=== PATIENT | female | born 1970 | race Caucasian/White ===

== ENCOUNTER 2018-04-11 13:06 | Emergency (ER) | payer MEDICARE, OTHER ==
[~2018-04-11] VITALS: Ht 167.6 cm; Wt 53.1 kg
[2018-04-11] MEDS ORDERED: NITROGLYCERIN SUBLINGUAL 0.4 MG BOTTLE OF 25. SL ONE (13:20)
[2018-04-11] MEDS ORDERED: ASPIRIN 81 MG TAB.CHEW ONE ×2 (13:20→13:25)
[2018-04-11] MEDS ORDERED: ASPIRIN ENTERIC COATED 81 MG TABLET.DR. PO ONE (13:24)
[2018-04-11] MEDS ORDERED: NITROGLYCERIN SUBLINGUAL 0.4 MG BOTTLE OF 25. SL PRN (13:30)
[2018-04-11] MEDS ORDERED: ASPIRIN 81 MG TAB.CHEW PO ONE (13:30)
[2018-04-11] MEDS ORDERED: KETOROLAC 30 MG/ML VIAL. ONE (13:53)
[2018-04-11 13:55] LABS: BASO # 0.1 x10^3/uL (0.0-0.2); BASO % 1 % (0-3); EOS # 0.2 x10^3/uL (0.0-0.7); EOS % 3 % (0-3); HEMATOCRIT 34.3 % (36.0-47.0); HEMOGLOBIN 11.6 g/dL (12.0-15.5); LYMPH # 3.5 x10^3/uL (1.0-4.8); LYMPH % 45 % (24-48); MEAN CORPUSCULAR HEMOGLOBIN 32 pg (25-35); MEAN CORPUSCULAR HGB CONC 34 g/dL (31-37); MEAN CORPUSCULAR VOLUME 94 fL (79-100); MONO # 0.5 x10^3/uL (0.0-1.1); MONO % 7 % (0-9); NEUT # 3.6 x10^3uL (1.8-7.7); NEUT % 45 % (31-73); PLATELET COUNT 272 x10^3/uL (140-400); RED BLOOD COUNT 3.63 x10^6/uL (3.50-5.40); RED CELL DISTRIBUTION WIDTH 13.3 % (11.5-14.5); WHITE BLOOD COUNT 7.9 x10^3/uL (4.0-11.0)
[2018-04-11] MEDS ORDERED: KETOROLAC 30 MG/ML VIAL. IV ONE (14:00)
[2018-04-11 14:14] LABS: ALBUMIN 3.4 g/dL (3.4-5.0); ALBUMIN/GLOBULIN RATIO 1.2 (1.0-1.7); CALCIUM 8.5 mg/dL (8.5-10.1); CREATININE 0.7 mg/dL (0.6-1.0); GFR 88.9; MAGNESIUM 2.4 mg/dL (1.8-2.4); POTASSIUM 3.9 mmol/L (3.5-5.1); TOTAL BILIRUBIN 0.1 mg/dL (0.2-1.0); TOTAL PROTEIN 6.2 g/dL (6.4-8.2)
--- NOTE | 2018-04-11 14:34 | RAD ---
Single view of the chest. 04/11/2018 1:10 PM Indication: chest pain, burning feel to left side and in arm Comparison: None available Findings: There is a left subclavian Port-A-Cath with tip at the cavoatrial junction. There is no focal consolidation. There is no pleural effusion or pneumothorax. Heart size is normal. No acute osseous abnormalities are seen. Impression: No evidence of acute cardiopulmonary process. Electronically signed by: Basilio Keene MD (04/11/2018 2:30 PM) [facility]
[2018-04-11] MEDS ORDERED: ALPR0.25 PO (14:48)
--- NOTE | 2018-04-11 14:49 | PHYS DOC ---
Past History Past Medical History: Other Additional Past Medical Histor: Hereditory angioedema Smoking: Non-smoker Alcohol Use: None Drug Use: None Adult General Chief Complaint Chief Complaint: CHEST PAIN HPI HPI Patient is a 47 year old female who presents with complaining of chest pain. Patient complaining of intermittent episodes of low substernal and epigastric as a electrical shock pain that started about 15 minutes prior to arrival to ER while she was driving. Patient states pain radiated to upper chest and neck and associated with shortness of breath, dizziness, palpitation and nausea and last about 2 seconds and repeated every couple minutes. She had rated her pain 7 out of 10. Patient denies fever, cough, vomiting, urinary problems, history of chest pain. Patient does not have any cardiac risk factors except for family history of coronary artery disease. Patient states she is under lots of stress recently. Review of Systems Review of Systems Constitutional: Denies fever or chills [] Eyes: Denies change in visual acuity, redness, or eye pain [] HENT: Denies nasal congestion or sore throat [] Respiratory: Denies cough, reports shortness of breath [] Cardiovascular: No additional information not addressed in HPI [] GI: Denies abdominal pain, vomiting, bloody stools or diarrhea , reports nausea[ ] : Denies dysuria or hematuria [] Musculoskeletal: Denies back pain or joint pain [] Integument: Denies rash or skin lesions [] Neurologic: Denies headache, focal weakness or sensory changes [] Endocrine: Denies polyuria or polydipsia [] All other systems were reviewed and found to be within normal limits, except as documented in this note. Current Medications Current Medications Current Medications Medications (Trade) Dose Ordered Sig/Anya Start Time Stop Time Status Last Admin Dose Admin Aspirin (Aspirin Enteric Coated) 81 mg STK-MED ONCE 04/11/18 13:24 04/11/18 13:25 DC Aspirin (Children'S Aspirin) 324 mg 1X ONCE 04/11/18 13:30 04/11/18 13:31 UNV 04/11/18 13:30 324 MG Ketorolac Tromethamine (Toradol 30mg Vial) 30 mg 1X ONCE 04/11/18 14:00 04/11/18 14:01 UNV 04/11/18 13:57 30 MG Nitroglycerin (Nitrostat) 0.4 mg PRN Q5MIN PRN 04/11/18 13:30 04/12/18 13:29 UNV 04/11/18 13:31 0.4 MG Physical Exam Physical Exam Constitutional: Well developed, well nourished, mild distress, non-toxic appearance. [] HENT: Normocephalic, atraumatic. Eyes: PERRLA, EOMI, conjunctiva normal, no discharge. [] Neck: Normal range of motion, no tenderness, supple, no stridor. [] Cardiovascular: Tachycardia, no murmur [] Lungs & Thorax: Bilateral breath sounds clear to auscultation [] Abdomen: Bowel sounds normal, soft, no tenderness, no masses, no pulsatile masses. [] Skin: Warm, dry, no erythema, no rash. [] Back: No tenderness, no CVA tenderness. [] Extremities: No tenderness, no cyanosis, no clubbing, ROM intact, no edema. [] Neurologic: Alert and oriented X 3, normal motor function, normal sensory function, no focal deficits noted. [] Psychologic: Affect anxious, judgement normal, mood normal. [] Current Patient Data Vital Signs Vital Signs Date Time Temp Pulse Resp B/P (MAP) Pulse Ox O2 Delivery O2 Flow Rate FiO2 04/11/18 13:31 105 122/77 Lab Results Laboratory Tests Test 04/11/18 13:40 White Blood Count 7.9 x10^3/uL (4.0-11.0) Red Blood Count 3.63 x10^6/uL (3.50-5.40) Hemoglobin 11.6 g/dL (12.0-15.5) L Hematocrit 34.3 % (36.0-47.0) L Mean Corpuscular Volume 94 fL (79-100) Mean Corpuscular Hemoglobin 32 pg (25-35) Mean Corpuscular Hemoglobin Concent 34 g/dL (31-37) Red Cell Distribution Width 13.3 % (11.5-14.5) Platelet Count 272 x10^3/uL (140-400) Neutrophils (%) (Auto) 45 % (31-73) Lymphocytes (%) (Auto) 45 % (24-48) Monocytes (%) (Auto) 7 % (0-9) Eosinophils (%) (Auto) 3 % (0-3) Basophils (%) (Auto) 1 % (0-3) Neutrophils # (Auto) 3.6 x10^3uL (1.8-7.7) Lymphocytes # (Auto) 3.5 x10^3/uL (1.0-4.8) Monocytes # (Auto) 0.5 x10^3/uL (0.0-1.1) Eosinophils # (Auto) 0.2 x10^3/uL (0.0-0.7) Basophils # (Auto) 0.1 x10^3/uL (0.0-0.2) D-Dimer ([place]) < 0.19 mg/L (0.00-0.50) Sodium Level 138 mmol/L (136-145) Potassium Level 3.9 mmol/L (3.5-5.1) Chloride Level 103 mmol/L (98-107) Carbon Dioxide Level 31 mmol/L (21-32) Anion Gap 4 (6-14) L Blood Urea Nitrogen 12 mg/dL (7-20) Creatinine 0.7 mg/dL (0.6-1.0) Estimated GFR (Cockcroft-Gault) 88.9 BUN/Creatinine Ratio 17 (6-20) Glucose Level 99 mg/dL (70-99) Calcium Level 8.5 mg/dL (8.5-10.1) Magnesium Level 2.4 mg/dL (1.8-2.4) Total Bilirubin 0.1 mg/dL (0.2-1.0) L Aspartate Amino Transferase (AST) 30 U/L (15-37) Alanine Aminotransferase (ALT) 37 U/L (14-59) Alkaline Phosphatase 61 U/L (46-116) Creatine Kinase 58 U/L (26-192) Troponin I Quantitative < 0.017 ng/mL (0-0.055) UC-Pbu-D-Type Natriuretic Peptide 100 pg/mL (0-124) Total Protein 6.2 g/dL (6.4-8.2) L Albumin 3.4 g/dL (3.4-5.0) Albumin/Globulin Ratio 1.2 (1.0-1.7) EKG EKG EKG interpreted by me. EKG at 1520 showed sinus tachycardia at rate of 106, otherwise normal EKG.[] Radiology/Procedures Radiology/Procedures [address] [id number] IMAGING REPORT Signed PATIENT: NIKKI SIMMS ACCOUNT: [id number] : 1970 LOCATION: ER AGE: 47 SEX: F EXAM STATUS: REG ER ORD. PHYSICIAN: IVANIA BLACKWOOD MD REASON: chest pain PROCEDURE: PORTABLE CHEST 1V Single view of the chest. 04/11/2018 1:10 PM Indication: chest pain, burning feel to left side and in arm Comparison: None available Findings: There is a left subclavian Port-A-Cath with tip at the cavoatrial junction. There is no focal consolidation. There is no pleural effusion or pneumothorax. Heart size is normal. No acute osseous abnormalities are seen. Impression: No evidence of acute cardiopulmonary process. Electronically signed by: Basilio Del Castillo MD (04/11/2018 2:30 PM) [id number] DICTATED AND SIGNED BY: BASILIO DEL CASTILLO MD DATE: 04/11/18 1429 CC: IVANIA BLACKWOOD MD; PCP,NO ~ Course & Med Decision Making Course & Med Decision Making Pertinent Labs and Imaging studies reviewed. (See chart for details) Evaluation of patient in ER showed 47-year-old male patient with intermittent episodes of substernal chest pain that started 15 minutes prior to arrival to ER. Patient had unremarkable physical exam except for anxiety and tachycardia EKG was unremarkable except for tachycardia. Labs showed marked anemia with unremarkable d-dimer, troponin, hepatic and renal enzyme. Patient felt mild improvement with Toradol but still complaining of pain but didn't want to have any medication for her anxiety and plans to drive home. Prescription of Xanax was given and instructed to follow-up with her primary care physician regarding mild anemia and more cardiac evaluation. Dragon Disclaimer Dragon Disclaimer This electronic medical record was generated, in whole or in part, using a voice recognition dictation system. Departure Departure: Impression: Primary Impression: Non-cardiac chest pain Additional Impressions: Panic attack Anemia Disposition: HOME, SELF-CARE (at 1446) Condition: IMPROVED Referrals: PCP,NO (PCP) Patient Instructions: Anemia, FAQs, Anxiety and Panic Attacks, Chest Pain ( Nonspecific) Additional Instructions: Follow-up with your primary care physician in 2 days for more heart evaluation and anemia workup Return to ER if not getting better Scripts Alprazolam (XANAX) 0.25 Mg Tablet 0.25 MG PO PRN Q6HRS PRN for ANXIETY / AGITATION, #10 TAB 0 Refills Prov: IVANIA BLACKWOOD MD 04/11/18 Problem Qualifiers IVANIA BLACKWOOD MD Apr 11, 2018 14:48
[2018-04-11 15:15] VITALS: BP 114/48
--- NOTE | 2018-04-11 16:10 | EKG ---
[address] [address] Test Date: 2018-04-11 Test Time: 13:20:56 Pat Name: NIKKI SIMMS Department: Room: Gender: F [employer] Director: : 1970 Requested By: IVANIA BLACKWOOD Order Number: [id number] Reading MD: Measurements Intervals [place] Rate: 106 P: 34 NM: 122 QRS: 54 QRSD: 84 T: 30 QT: 326 QTc: 435 Interpretive Statements SINUS TACHYCARDIA OTHERWISE NORMAL ECG RI6.01 Unconfirmed report No previous ECG available for comparison
== END 2018-04-11 15:18 | disposition home or self-care (01) ==
LOC: ER 13:06
DX: F41.0 Panic disorder [episodic paroxysmal anxiety] (principal); D64.9 Anemia, unspecified; R10.13 Epigastric pain
CPT/HCPCS: 36415; 71045; 80053; 82550; 83735; 83880; 84484; 85025; 85379; 93005; 96374; 99284; J1885